=== PATIENT | male | born 1995 | race Native Hawaiian/Other Pacific Islander ===

== ENCOUNTER 2017-08-13 22:57 | Emergency (ER) | payer BC ==
[~2017-08-13] VITALS: Ht 180.3 cm; Wt 136.1 kg
[2017-08-13 23:15] VITALS: TEMP 98.5
[2017-08-13 23:56] LABS: PLATELET COUNT 364 K/uL (142-355)
[2017-08-14 00:25] LABS: POTASSIUM 3.7 mmol/L (3.6-5.2)
[2017-08-14 01:57] VITALS: BP 122/79
== END 2017-08-14 01:58 | disposition home or self-care (01) ==
LOC: ED 22:57
DX: R22.42 Localized swelling, mass and lump, left lower limb (principal)
CPT/HCPCS: 80053; 81000; 85027; 99283